=== PATIENT | female | born 1990 | race Caucasian/White ===

== ENCOUNTER 2020-04-28 14:17 | Emergency (ER) | payer OTHER ==
[~2020-04-28] VITALS: Ht 162.6 cm; Wt 93.1 kg
[2020-04-28 15:13] LABS: BASO # 0.1 10^3/uL (0.0-0.2); BASO % 0.8 % (0.0-1.0); EOS # 0.9 10^3/uL (0.0-0.5); EOS % 5.3 % (0.0-3.0); HEMATOCRIT 39.9 % (36.0-47.0); HEMOGLOBIN 12.9 g/dl (12.0-15.5); LYMPH # 2.8 10^3/uL (1.5-5.0); LYMPH % 16.4 % (24.0-44.0); MEAN CORPUSCULAR HEMOGLOBIN 28.6 pg (27.0-33.0); MEAN CORPUSCULAR HGB CONC 32.3 g/dl (32.0-36.5); MEAN CORPUSCULAR VOLUME 88.5 fl (80.0-96.0); MONO # 1.9 10^3/uL (0.0-0.8); MONO % 11.4 % (2.0-8.0); NEUTROPHILS # 11.1 10^3/uL (1.5-8.5); NEUTROPHILS % 65.6 % (36.0-66.0); PLATELET COUNT, AUTOMATED 488 10^3/uL (150-450); RED BLOOD COUNT 4.51 10^6/uL (4.00-5.40)
--- OUTSIDE RECORDS SUMMARY | 2020-04-28 15:25 | CCD | Continuity of Care Document ---
Author Author Yasimn WHELAN Organization Unknown Address [address] [place] [id number] Phone [phone] Care Team Providers Care Track Layer Name Role Phone Usa Milana Walsh sara AUTM Unavailable Problems Active Problems Provider Date Localized, primary osteoarthritis of the shoulder region Martín ETIENNE Manjarrez Onset: 08/28/2019 Disorder of bursa of shoulder region ETIENNE Dotson Ons et: 08/28/2019 Bicipital tenosynovitis ETIENNE Dotson Onset: 0 Social History Type Date Description Comments Sex Unknown ETOH Use Denies alcohol use Recreational Drug Use Denies Drug Use Tobacco Use Start: Unknown Patient is a current smoker, smo kes every day 2-3 per day, smoked for 10+ years Allergies, Adverse Reactions, Alerts Active Allergies Reaction Severity Comments Date NKDA 08/26/2019 NKFA 08/26/2019 NKEA 08/26/2019 Medications Description No Active Medications Immunizations Description No Information Available Vital Signs Date Vital Result Comment 01/29/2020 9:59am Body Temperature 98.4 F 08/31/2019 2:49pm BP Systolic 118 mmHg BP Diastolic 74 mmHg Heart Rate 95 /min Body Temperature 98.2 F O2 % BldC Oximetry 100 % Weight 170.00 lb Weight 77.112 kg Height 64 inches 5'4" BMI (Body Mass Index) 29.2 kg/m2 BSA (Body Surface Area) 1.83 m2 Results Test Acquired Date Facility Test Result H/L Range Note HCG Urine Qual 09/24/2019 [facility] HCG Urine Qual NEGATIVE Normal: Negative 1 HCG Urine QL [facility] NEGATIVE Normal: Negative 2 1 Will send patient on arrival 2 { KIT LOT # [id number] ) { KIT EXP DATE 12/21/20 ) { PROCEDURAL CONTROL VALID ) Procedures Description No Information Available Medical Devices Description No Information Available Encounters Type Date Location Provider Dx Diagnosis Office Visit 01/29/2020 10:00a [facility] Harmeet Whelan, F [employer] M75.21 Bicipital tendinitis, right shoulder M19.011 Primary osteoarthritis, righ t shoulder M75.51 Bursitis of right shoulder Assessments Date Code Description Provider 01/29/2020 M75.21 Bicipital tendinitis, right nadia Whelan, [facility] 01/29/2020 M19.011 Primary osteoarthritis, right lina Whelan, [employer] 01/29/2020 M75.51 Bursitis of right shoulder Hamreet Whelan, GROUND WORK[employer] 12/18/2019 M19.011 Primary osteoarthritis, right helenabenitez Xin Koehler M.D. 12/18/2019 M75.21 Bicipital tendinitis, right nadia marquis Xin Koehler M.D. 12/18/2019 M75.51 Bursitis of right shoulder Xin Koehler M.D. 11/06/2019 M19.011 Primary osteoarthritis, right lina Whelan, [facility] 11/06/2019 M75.21 Bicipital tendinitis, right nadia Whelan, [facility] 11/06/2019 M75.51 Bursitis of right shoulder Harmeet Whelan, [facility] 10/09/2019 M19.011 Primary osteoarthritis, right lina Koehler M.D. 10/09/2019 M75.21 Bicipital tendinitis, right emilylilly benitez Koehler M.D. 10/09/2019 M75.51 Bursitis of right shoulder Xin Koehler M.D. 09/30/2019 M19.011 Primary osteoarthritis, right lina Whelan, [facility] 09/30/2019 M75.21 Bicipital tendinitis, right nadia Whelan, [facility] 09/30/2019 M75.51 Bursitis of right shoulder Harmeet Whelan, [facility] 08/31/2019 M75.101 Unspecified rotator cuff tear or rupture of right shoulder, not specified as traumatic Xin Koehler M.D. 08/31/2019 M19.011 Primary osteoarthritis, right oubenitez Koehler M.D. 08/31/2019 M75.21 Bicipital tendinitis, right shou niurkaer Xin Koehler M.D. 08/31/2019 M75.51 Bursitis of right shoulder Xin Koehler M.D. 08/28/2019 M75.21 Bicipital tendinitis, right shou lder Harmeet Whelan, [facility] 08/28/2019 M75.51 Bursitis of right shoulder Harmeet Whelan, [facility] 08/28/2019 M75.101 Unspecified rotator cuff tear or rupture of right shoulder, not specified as traumatic Harmeet Whelan, [employer] 08/28/2019 M19.011 Primary osteoarthritis, right sh oulder Harmeet Cleopatra, [facility] 08/28/2019 Y92.530 Ambulatory surgery c enter as the place of occurrence of the external cause ETIENNE Dotson Plan of Treatment Future Appointment(s):* 05/02/2020 2:00 pm - Ortho Group Schedule Resource Only at [facility] 01/29/2020 - ETIENNE Dotson* M75.21 Bicipital tendinitis, right shoulder* Follow up:* 3 months * Instructions:* Today, your physical therapy order was updated to include strengthening. Take this to your next therapy appointment. It is very important that you strengthen gradually. Avoid lifting anything heavier outside of physical therapy than what you are currently lifting in therapy (if you have been lifting 10lbs in therapy do not lift 50lbs outside of therapy). Your next appointment will be in 3 months. Contact us sooner if you have any questions or concerns. * M19.011 Primary osteoarthritis, right shoulder * M75.51 Bursitis of right shoulder Functional Status Functional Condition Comment Date Status Glasses Active Contacts Active Mental Status Description No Information Available Referrals Description No Information Available
--- OUTSIDE RECORDS SUMMARY | 2020-04-28 15:25 | CCD ---
Author Author [facility] Organization [facility] Address Unknown Phone Unavailable Care Team Providers Care Computer Programming Supervisor Name Role Phone Cleopatra, D Harmeet COMBINE OPERATOR Unavailable Unavailable Cleopatra, D Harmeet COMBINE OPERATOR Unavailable Unavailable Cleopatra, D Harmeet COMBINE OPERATOR Unavailable Unavailable Cleopatra, D Harmeet COMBINE OPERATOR Unavailable Unavailable Cleopatra, D Harmeet COMBINE OPERATOR Unavailable Unavailable Cleopatra, D Harmeet COMBINE OPERATOR Unavailable Unavailable Cleopatra, D Harmeet COMBINE OPERATOR Unavailable Unavailable Cleopatra, D Harmeet COMBINE OPERATOR Unavailable Unavailable Cleopatra, D Harmeet COMBINE OPERATOR Unavailable Unavailable Cleopatra, D Harmeet COMBINE OPERATOR Unavailable Unavailable Cleopatra, D Harmeet COMBINE OPERATOR Unavailable Unavailable Cleopatra, D Harmeet COMBINE OPERATOR Unavailable Unavailable Cleopatra, D Harmeet COMBINE OPERATOR Unavailable Unavailable Cleopatra, D Harmeet COMBINE OPERATOR Unavailable Unavailable Cleopatra, D Harmeet COMBINE OPERATOR Unavailable Unavailable Cleopatra, D Harmeet COMBINE OPERATOR Unavailable Unavailable Cleopatra, D Harmeet COMBINE OPERATOR Unavailable Unavailable Cleopatra, D Harmeet COMBINE OPERATOR Unavailable Unavailable Cleopatra, D Harmeet COMBINE OPERATOR Unavailable Unavailable Cleopatra, D Harmeet COMBINE OPERATOR Unavailable Unavailable Cleopatra, D Harmeet COMBINE OPERATOR Unavailable Unavailable Cleopatra, D Harmeet COMBINE OPERATOR Unavailable Unavailable Cleopatra, D Harmeet COMBINE OPERATOR Unavailable Unavailable Cleopatra, D Harmeet COMBINE OPERATOR Unavailable Unavailable Cleopatra, D Harmeet COMBINE OPERATOR Unavailable Unavailable Cleopatra, D Harmeet COMBINE OPERATOR Unavailable Unavailable Cleopatra, D Harmeet COMBINE OPERATOR Unavailable Unavailable Cleopatra, D Harmeet COMBINE OPERATOR Unavailable Unavailable Cleopatra, D Harmeet COMBINE OPERATOR Unavailable Unavailable Cleopatra, D Harmeet COMBINE OPERATOR Unavailable Unavailable Cleopatra, D Harmeet COMBINE OPERATOR Unavailable Unavailable Cleopatra, D Harmeet COMBINE OPERATOR Unavailable Unavailable Cleopatra, D Harmeet COMBINE OPERATOR Unavailable Unavailable Cleopatra, D Harmeet COMBINE OPERATOR Unavailable Unavailable Cleopatra, D Harmeet COMBINE OPERATOR Unavailable Unavailable Cleopatra, D Harmeet COMBINE OPERATOR Unavailable Unavailable Cleopatra, D Harmeet COMBINE OPERATOR Unavailable Unavailable Cleopatra, D Harmeet COMBINE OPERATOR Unavailable Unavailable Cleopatra, D Harmeet COMBINE OPERATOR Unavailable Unavailable Cleopatra, D Harmeet COMBINE OPERATOR Unavailable Unavailable Cleopatra, D Harmeet COMBINE OPERATOR Unavailable Unavailable Cleopatra, D Harmeet COMBINE OPERATOR Unavailable Unavailable Cleopatra, D Harmeet COMBINE OPERATOR Unavailable Unavailable Cleopatra, D Harmeet COMBINE OPERATOR Unavailable Unavailable Cleopatra, D Harmeet COMBINE OPERATOR Unavailable Unavailable Cleopatra, D Harmeet COMBINE OPERATOR Unavailable Unavailable Cleopatra, D Harmeet COMBINE OPERATOR Unavailable Unavailable Cleopatra, D Harmeet COMBINE OPERATOR Unavailable Unavailable Cleopatra, D Harmeet COMBINE OPERATOR Unavailable Unavailable Cleopatra, D Harmeet COMBINE OPERATOR Unavailable Unavailable Cleopatra, D Harmeet COMBINE OPERATOR Unavailable Unavailable Cleopatra, D Harmeet COMBINE OPERATOR Unavailable Unavailable Cleopatra, D Harmeet COMBINE OPERATOR Unavailable Unavailable Cleopatra, D Harmeet COMBINE OPERATOR Unavailable Unavailable Cloepatra, D Harmeet COMBINE OPERATOR Unavailable Unavailable Cleopatra, D Harmeet COMBINE OPERATOR Unavailable Unavailable Cleopatra, D Harmeet COMBINE OPERATOR Unavailable Unavailable Cleopatra, D Harmeet COMBINE OPERATOR Unavailable Unavailable Cleopatra, D Harmeet COMBINE OPERATOR Unavailable Unavailable Cleopatra, D Harmeet COMBINE OPERATOR Unavailable Unavailable Cleopatra, D Harmeet COMBINE OPERATOR Unavailable Unavailable Cleopatra, D Harmeet COMBINE OPERATOR Unavailable Unavailable Cleopatra, D Harmeet COMBINE OPERATOR Unavailable Unavailable Cleopatra, D Harmeet COMBINE OPERATOR Unavailable Unavailable Cleopatra, D Harmeet COMBINE OPERATOR Unavailable Unavailable Cleopatra, D Harmeet COMBINE OPERATOR Unavailable Unavailable Cleopatra, D Harmeet COMBINE OPERATOR Unavailable Unavailable Cleopatra, D Harmeet COMBINE OPERATOR Unavailable Unavailable Cleopatra, D Harmeet COMBINE OPERATOR Unavailable Unavailable Cleopatra, D Harmeet COMBINE OPERATOR Unavailable Unavailable NON, PHYSICIAN STAFF Unavailable Unavailable PARNES Z XIN MD Unavailable Unavailable PARNES, Z XIN MD Unavailable Unavailable PARNES, Z XIN MD Unavailable Unavailable PARNES, Z XIN MD Unavailable Unavailable PARNES Z XIN MD Unavailable Unavailable PARNES, Z XIN MD Unavailable Unavailable PARNES Z XIN MD Unavailable Unavailable PARNES, Z XIN MD Unavailable Unavailable PARNES, Z XIN MD Unavailable Unavailable PARNES, Z XIN MD Unavailable Unavailable PARNES, Z XIN MD Unavailable Unavailable PARNES, Z XIN MD Unavailable Unavailable PARNES, Z XIN MD Unavailable Unavailable PARNES, Z XIN MD Unavailable Unavailable PARNES, Z XIN MD Unavailable Unavailable PARNES, Z XIN MD Unavailable Unavailable PARNES, Z XIN MD Unavailable Unavailable PARNES, Z XIN MD Unavailable Unavailable PARNES, Z XIN MD Unavailable Unavailable PARNES, Z XIN MD Unavailable Unavailable PARNES, Z XIN MD Unavailable Unavailable PARNES, Z XIN MD Unavailable Unavailable PARNES, Z XIN MD Unavailable Unavailable PARNES, Z XIN MD Unavailable Unavailable PARNES, Z XIN MD Unavailable Unavailable PARNES, Z XIN MD Unavailable Unavailable PARNES, Z XIN MD Unavailable Unavailable PARNES, Z XIN MD Unavailable Unavailable PARNES, Z XIN MD Unavailable Unavailable PARNES, Z XIN MD Unavailable Unavailable PARNES, Z XIN MD Unavailable Unavailable PARNES, Z XIN MD Unavailable Unavailable PARNES, Z XIN MD Unavailable Unavailable PARNES, Z IXN MD Unavailable Unavailable PARNES, Z XIN MD Unavailable Unavailable PARNES, Z XIN MD Unavailable Unavailable PARNES, Z XIN MD Unavailable Unavailable PARNES, Z XIN MD Unavailable Unavailable Re-disclosure Warning The records that you are about to access may contain information from federally-assisted alcohol or drug abuse programs. If such information is present, then the following federally mandated warning applies: This information has been disclosed to you from records protected by federal confidentiality rules (42 CFR part 2). The federal rules prohibit you from making any further disclosure of this information unless further disclosure is expressly permitted by the written consent of the person to whom it pertains or as otherwise permitted by 42 CFR part 2. A general authorization for the release of medical or other information is NOT sufficient for this purpose. The Federal rules restrict any use of the information to criminally investigate or prosecute any alcohol or drug abuse patient.The records that you are about to access may contain highly sensitive health information, the redisclosure of which is protected by Article 27-F of the [facility] Public Health law. If you continue you may have access to information: Regarding HIV / AIDS; Provided by facilities licensed or operated by the [facility] Office of Mental Health; or Provided by the [facility] Office for People With Developmental Disabilities. If such information is present, then the following [facility] mandated warning applies: This information has been disclosed to you from confidential records which are protected by state law. State law prohibits you from making any further disclosure of this information without the specific written consent of the person to whom it pertains, or as otherwise permitted by law. Any unauthorized further disclosure in violation of state law may result in a fine or halfway sentence or both. A general authorization for the release of medical or other information is NOT sufficient authorization for further disc losure. Allergies and Adverse Reactions Type Description Substance Reaction Status Data Source(s ) No Known Drug Allergies No Known Drug Allergies [facility] No Known Environmental Allergies No Known Environmental Al lergies [facility] No Known Food Allergies No Known Food Allergies [facility] Encounters Encounter Providers Location Date Indications Data Source(s ) Outpatient Attender: XIN KOEHLER MDConsultant: STAFF NON 01/29/2020 09:50:00 AM EST - 01/29/2020 09:50:00 AM EST [facility] ital Outpatient Attender: Harmeet Whelan NP Family Practice 01/29/2020 0 9:00:00 AM EST [facility] ([facility]) Outpatient Attender: XIN KOEHLER MDConsultant: STAFF NON 12/22/2019 11:01:00 AM EDT - 01/07/2020 12:16:00 PM EDT [facility] Patient discharged. Office Visit Attender: XIN KOEHLER MD Family Practice 020 10:00:00 AM EDT [facility]) Outpatient Attender: XIN KOEHLER MD 020 09:00:00 AM EDT - 12/18/2019 09:00:[address] [facility] Outpatient Attender: Harmeet Whelan NPAttender: XIN Potts 11/06/2019 07:53:00 AM EDT - 11/06/2019 07:53:[address] [facility] Outpatient Attender: XIN KOEHLER MD 020 10:31:00 AM EDT - 10/09/2019 10:31:[address] [facility] Outpatient Attender: XIN KOEHLER MD 020 08:26:00 AM EDT - 09/30/2019 08:26:[address] [facility] Outpatient Attender: XIN KOEHLER MD 020 07:00:00 AM EDT - 09/24/2019 11:57:[address] [facility] Patient discharged. Outpatient Attender: XIN KOEHLER MD 020 12:40:16 PM EDT - 09/04/2019 10:30:[address] [facility] Patient discharged. Outpatient Attender: Harmeet Whelan NP 2019 11:10:00 AM EDT - 09/01/2019 12:10:[address] [facility] Outpatient Attender: XIN KOEHLER MD Family Practice 08/31/2019 03 :00:00 PM EDT [facility] ([facility]) Outpatient Attender: XIN KOEHLER MD 020 02:46:00 PM EDT - 08/31/2019 02:46:[address] [facility] Outpatient Attender: Harmeet Whelan NPAttender: XIN Potts 08/28/2019 11:04:00 AM EDT - 08/28/2019 11:04:[address] [facility] Outpatient Attender: Harmeet Whelan COMBINE OPERATOR Family Practice 08/28/2019 1 1:00:00 AM EDT [facility] ([facility]) Medications Medication Brand Name Start Date Product Form Dose Route Admi nistrative Instructions Pharmacy Instructions Status Indications Reaction Description Data Source(s) 5-325 mg 09/24/2019 12:00:00 AM EDT tablet 48 TAKE ONE TO TWO TABLETS BY MOUTH EVERY 4 TO 6 HOURS NEEDED FOR PAIN MAXIMUM DAILY DOSE = 8 TAKE ONE TO TWO TABLETS BY MOUTH EVERY 4 TO 6 HOURS NEEDED FOR PAIN MAXIMUM DAILY DOSE = 8 SOLD: 09/24/2019 Benjamin [place] s Insurance Providers Payer name Policy type / Coverage type Policy ID Covered libertarian ID Covered libertarian's relationship to bhardwaj Policy Bhardwaj Plan Information [employer] [id number] [employer] [place] [id number] [employer] [place] [id number] 01 [id number] [employer] PHYSICIAN [id number] 01 [id number] [employer] [place] [id number] 01 [id number] [employer] [place] [id number] [employer] [place] [id number] [employer] [place] [id number] Problems, Conditions, and Diagnoses Code Display Name Description Problem Type Effective Dates Data Source(s) 50569265 Bicipital tenosynovitis Bicipital tenosynovitis Proble m 08/28/2019 12:00:00 AM EDT [facility] ([facility]) [id number] Disorder of bursa of shoulder region Dis order of bursa of shoulder region Problem 08/28/2019 12:00:00 AM EDT [facility] ([facility]) [id number] Localized, primary osteoarthritis of the shoulder region Localized, primary osteoarthritis of the shoulder region Problem 08/28/19 20 12:00:00 AM EDT [facility] ([facility]) [id number] Encounter for other orthopedic aftercare Encounter for other orthopedic aftercare Diagnosis 12/22/2019 11:01:[address] [facility] Z4802 Encounter for removal of sutures Encounter for r emoval of sutures Diagnosis 10/09/2019 10:31:[address] [facility] M7551 Bursitis of right shoulder Bursitis of right shoulder Diagnosis 09/24/2019 07:00:[address] [facility] M7521 Bicipital tendinitis, right shoulder Bicipital t endinitis, right shoulder Diagnosis 09/24/2019 07:00:[address] [facility] [id number] Primary osteoarthritis, right shoulder P rimary osteoarthritis, right shoulder Diagnosis 09/24/2019 07:00:[address] [facility] [id number] Unspecified rotator cuff tea r or rupture of right shoulder, not specified as traumatic Unspecified rotator cuff tear or rupture of right shoulder, not specified as traumatic Diagnosis 09/24/2019 07:00:00 AM EDT [facility] J60174 Encounter for other preprocedural examin ation Encounter for other preprocedural examination Diagnosis 09/04/2019 09:30:00 AM EDT [facility] Results ID Date Data Source [id number] 09/24/2019 01:11:[place] [address] OPERATIVE SUMMARYNAME: CHERI NERI DATE OF : 1990ATTENDING PHYS: Xin Koehler MD DATE : 09/24/19 MR#: [id number] OF PROCEDURE: 09/24/2019PREOPERATIVE DIAGNOSIS: 1. Right shoulder long biceps tendon tendinosis. 2. Right shoulder subacromial bursitis. 3. Right shoulder acromioclavicular joint arthritis. 4. Right shoulder possible rotator cuff tear.POSTOPERATIVE DIAGNOSIS: 1. Right shoulder long biceps tendon tendinosis. 2. Right shoulder subacromial bursitis and down-sloping acromion. 3. Right shoulder acromioclavicular joint arthritis. 4. Right shoulder normal rotator cuff tendons.SURGEON: Xin Koehler MD.MATERIALS BRANCH CHIEF: Harmeet Whelan NP.REASON FOR ASSISTANT PROGRAM DIRECTOR: Harmeet Whelan NP provided essential assistance during this caseincluding careful retraction of vital structures, safe manipulation of anatomic structures,stabilization of scope, suctioning of body fluid to maintain clear visualization, wound closure, andimmobilizer placement.ANESTHESIA: General, interscalene block, local.ANESTHESIOLOGIST: Herbie Hardwick MD.SURGICAL TIME: 69 minutes.OPERATION PERFORMED: 1. Right shoulder evaluation under anesthesia. 2. Right shoulder diagnostic arthroscopy. 3. Right shoulder arthroscopic subacromial decompression plus acromioplasty. 4. Right shoulder arthroscopic acromioclavicular joint resection arthroplasty. 5. Right shoulder arthroscopic assisted subpectoral biceps tenodesis ([employer]hew OsteoRaptor 2.9 mm double-loaded anchor x1).ESTIMATED BLOOD LOSS: Minimal.SPECIMENS: None. [address] [place] [address] OPERATIVE SUMMARYNAME: CHERI NERI DATE OF : 1990ATTENDING PHYS: Xin Koehler MD DATE: 09/24/19 MR#: [id number]: [employer]hew OsteoRaptor 2.9 mm double-loaded anchor x1.SPONGE COUNT: Correct.NEEDLE COUNT: Correct.COMPLICATIONS: None.INDICATION FOR PROCEDURE:The patient is a 28-year-old female with pain in her right dominant shoulder for the last ten years.The patient's preoperative examination and imaging studies, including MRI, suggested the abovenoted diagnosis. The patient failed conservative treatment, therefore it was elected at this point toperform the above-noted surgery.OPERATIVE FINDINGS:Examination under anesthesia demonstrated stable, supple shoulder. Range of motion wasmeasured with forward flexion 160 degrees, external rotation 70 degrees, internal rotation 60degrees. At time of arthroscopy, the cartilage of the humeral head and glenoid were found to benormal. The labrum was normal and well attached all around the glenoid. The capsule appeared alfie normal. The biceps tendon was inflamed including its intrabicipital groove part. The rotator cufftendons were completely normal. In the subacromial space there was a thick bursitis and down-sloping acromion. There was a diminished joint space and arthritis of the acromioclavicular joint.DESCRIPTION OF PROCEDURE:The patient was brought to the operating room and placed on the operating table in beach chair andsupine position. After adequate anesthesia was obtained, the patient was placed in the uprightseated position. The right arm was then elevated, prepped, and draped in the usual sterile fashion.The patient received 2 gram of Ancef IV preoperatively as prophylaxis against infection.Arthroscopy was then performed through the standard portals with findings as noted above.ARTHROSCOPIC BICEPS TENOTOMY:Visualizing directly the glenohumeral joint, the biceps tendon was tenotomized with shaver andradiofrequency device. The radiofrequency device was used to debride the stump of the tendontissue. After the tenotomy, it was verified that the biceps tendon was retracted all the way into thebicipital groove.ARTHROSCOPIC SUBACROMIAL DECOMPRESSION PLUS ACROMIOPLASTY: [address] [place] [address] OPERATIVE SUMMARYNAME: CHERI NERI DATE OF : 1990ATTENDING PHYS: Xin Koehler MD DATE: 09/24/19 MR#: [id number] the two portal technique with motorized shaver and radiofrequency device, the bursa wasremoved from lateral to medial and from anterior to posterior. Then using a motorized bur in thesame sequence of steps, I flattened the acromion. The coracoacromial ligament was left intact. Therotator cuff tendons were inspected from the bursal side and found to be completely normal.ARTHROSCOPIC ACROMIOCLAVICULAR JOINT RESECTION ARTHROPLASTY:Using the two portal technique with motorized shaver and radiofrequency device, the distal claviclewas resected. I used the anterior portal to facilitate this and visualized through the posterior andlateral portals while removing the distal clavicle in a uniform from superior to inferior and anteriorto posterior for a distance of 1 cm.ARTHROSCOPIC ASSISTED SUBPECTORAL BICEPS TENODESIS:The arthroscopic instrument was removed from the shoulder. The arm was 40 degree abducted and30 degree forward flexed. Approximately 4 cm incision was made in the anterior inferior axillaryfold. Sharp dissection was deplored through the subcutaneous tissue down through the fasciaoverlying the pectoralis major tendon. The subpectoral space was then bluntly dissected. The armwas then internally rotated and a retractor was placed to elevate the pectoralis major tendon. Thebiceps tendon was delivered with right angle clamp in retrograde fashion out of the bicipitalgroove. The adjacent bone was opened, and a single anchor OsteoRaptor 2.9 mm double-loadedwas placed in the bone at this point. The sutures were then retrieved at the musculocutaneousjunction of the biceps in alternating simple and lasso-loop configuration. The suture was tied downlocking the tendon against the abraded bone. The extra length of the tendon and the suture wereremoved with a knife. I irrigated the wound thoroughly.The incision was closed with 3-0 Vicryl suture. The skin was closed with continuous 3-0 Monocrylsuture, reinforced with Steri- Strips. The portals were closed with interrupted 3-0 nylon suture. Theshoulder was dressed sterilely and positioned in shoulder immobilizer and Cryo-Cuff device. Thepatient was transferred to the recovery room in satisfactory condition, having tolerated theprocedure very well.POSTOPERATIVE THERAPY PROTOCOL:The patient shoulder use the Cryo-Cuff device for pain control. The patient will remain in shoulderimmobilizer for six weeks. After two weeks, pass nupur range of motion will be started. After sixweeks, active and active-assisted range of motion will be started. On the first clinical follow up, Nuno teach the patient how to do elbow, wrist, and finger range of motion. This is Dr. Xin Koehler, Ipersonally performed all elements of this surgery. [address] [place] [address] OPERATIVE SUMMARYNAME: CHERI NERI DATE OF : 1990ATTENDING PHYS: Xin Koehler MD DATE: 09/24/19 MR#: [id number]: Xin Koehler MD 09/24/19 11:40DT: SSR 09/24/19 12:59DS: Xin Koehler MD 09/25/19 15:27 4 Name Value Range Interpretation Code Description Data Nia rce(s) Supporting Document(s) ID Date Data Source [id number] 09/24/2019 07:45:00 AM EDT [facility] ([facility]) Name Value Range Interpretation Code Description Data Nia rce(s) Supporting Document(s) HCG Urine Qual Laboratory test result [facility] ([facility]) Will send patient on arrival HCG Urine QL [facility]enter Laboratory test result [facility] ([facility]) Will send patient on arrival ID Date Data Source [id number] 09/24/2019 08:04:[address] [facility] Name Value Range Interpretation Code Description Data Nia rce(s) Supporting Document(s) HCG URINE QUAL NEGATIVE NORMAL: NEGATIVE [facility] HCG URINE QL REENTER NEGATIVE NORMAL: NEGATIVE [facility] { KIT LOT # [id number] ){ KIT EXP DATE 12/21/20 ){ PROCEDURAL CONTROL VALID ) ID Date Data Source [id number] 09/01/2019 08:47:00 PM EDT [facility] [address] [place] [address] RESPIRATORY CARE REPORT ==== ---------NAME------- NUMBER SEX AGE ADMIT DISC. XRAY# F/C [facility] [id number] F 28 09/01/19 09/01/19134563 SB4 O/P DATE OF : 1990 M/R# [id number] #: [id number] LOCATION: [facility] [address] COMPLETE:09/01/19 12:08 [address] PHYSICIAN: CORI Name Value Range Interpretation Code Description Data Nia rce(s) Supporting Document(s) ID Date Data Source [id number] 09/01/2019 12:01:[address] [facility] Name Value Range Interpretation Code Description Data Nia rce(s) Supporting Document(s) COMPREHENSIVE METABOLIC PANEL [facility] COMPREHENSIVE METABOLIC PANEL Sodium [Moles/volume] in Serum or Plasma 137 mEq/L 134 - 153 [facility] Potassium [Moles/volume] in Serum or Plasma 4.3 mEq/L 3.6 - 5.0 [facility] Chloride [Moles/volume] in Serum or Plasma 107 mEq/L 98 - 107 [facility] Carbon dioxide, total [Moles/volume] in Serum or Plasma 20 MEQ/L 22 - [address] [facility] Glucose [Mass/volume] in Serum or Plasma 141 MG/DL 65 - [address] [facility] BUN 9 MG/DL 7 - 21 [facility] al Creatinine [Mass/volume] in Serum or Plasma 0.7 MG/DL 0.7 - 1.5 [facility] BUN/CREAT 13 8 - 27 [facility] Protein [Mass/volume] in Serum or Plasma 7.0 G/DL 6.3 - 8.2 [facility] Albumin [Mass/volume] in Serum or Plasma 4.5 G/DL 3.9 - 5.0 [facility] Globulin [Mass/volume] in Serum by calculation 2.5 GM/DL 2.4 - 3.2 [facility] A/G RATIO 1.8 0.8 - 2.0 [facility] Calcium [Mass/volume] in Serum or Plasma 9.4 MG/DL 8.4 - 10.2 [facility] Bilirubin.total [Mass/volume] in Serum or Plasma <0.7 MG/DL 0.2 - 1.3 [facility] Alkaline phosphatase [Enzymatic activity/volume] in Serum or Plasma 86 U/L 38 - 126 [facility] Aspartate aminotransferase [Enzymatic activity/volume] in Serum or Plasma 18 U/L 5 - 40 [facility] Alanine aminotransferase [Enzymatic activity/volume] in Seru m or Plasma 20 U/L 7 - 56 [facility] Anion gap 3 in Serum or Plasma 10.0 mmol/L 8.0 - 16.0 [facility] AGE 28 yrs [facility] al NON-AA GFR >60 mL/min [facility] ital AFR AMER GFR >60 mL/min [facility] Male GFR In terprentation 20-49 yrs >60 mL/min Normal 50-59 yrs >56 mL/min Normal 60-69 yrs >49 mL/min Normal 70-79yrs >42 mL/min Normal 80 and above >35 mL/min Normal Female GFR Interpretation 20-39 yrs >60 mL/min Normal 40-49 yrs >58 mL/min Normal 50-59 yrs >51 mL/min Normal 60-69 yrs >45 mL/min Normal 70-79 yrs >39 mL/min Normal 80 and above >32 mL/min Normal ID Date Data Source [id number] 09/01/2019 11:48:[address] [facility] Name Value Range Interpretation Code Description Data Nia rce(s) Supporting Document(s) [facility] SOURCE R [facility] al COLOR yellow NORMAL: Yellow [facility] CLARITY clear NORMAL: Clear [facility] Specific gravity of Urine by Test strip 1.010 1.001 - 1.030 [facility] pH 6 5 - 9 [facility] al Glucose [Mass/volume] in Urine by Test strip NORM NORMAL: Negat [facility] Bilirubin.total [Presence] in Urine by Test strip NEG NORMAL: Negative [facility] Ketones [Presence] in Urine by Test strip NEG NORMAL: Negative [facility] Protein [Mass/volume] in Urine by Test strip [facility]G [facility] Nitrite [Presence] in Urine by Test strip NEG NORMAL: Negative [facility] BLOOD 25 NORMAL: Negative A [facility] Leukocyte esterase [Presence] in Urine by Test strip NEG KATARINA L: Negative [facility] Urobilinogen [Mass/volume] in Urine by Test strip NOR less stan n 1.0 mg/dL [facility] MICROSCOPIC See Below [facility] ital Erythrocytes [#/volume] in Urine by Test strip 0 - 1 NORMAL: NON E SEEN [facility] EPITHELIAL FEW NORMAL: NONE SEEN [facility] ID Date Data Source [id number] 09/01/2019 11:29:[address] [facility] Name Value Range Interpretation Code Description Data Nia rce(s) Supporting Document(s) CBC NO DIFF [facility] ital COMPLETE BLOOD COUNT Leukocytes [#/volume] in Blood by Automated count 8.4 10^3/uL 4.2 - [address] [facility] Erythrocytes [#/volume] in Blood by Automated count 4.88 10^6/uL 4. 20 - 5.40 [facility] Hemoglobin [Mass/volume] in Blood 14.3 g/dL 12.0 - 16.0 [facility] Hematocrit [Volume Fraction] of Blood by Automated count 42.5 % 3 7.0 - 47.0 [facility] Erythrocyte mean corpuscular volume [Entitic volume] by Auto mated count 87.1 fL 81.0 - 101 [facility] Erythrocyte mean corpuscular hemoglobin [Entitic mass] by Automated count 29.3 pg 27.0 - 34.0 [facility] Erythrocyte mean corpuscular hemoglobin concentration [Mass/volume] by Automated count 33.6 g/dL 31.0 - 36.0 [facility] Erythrocyte distribution width [Ratio] by Automated count 12.9 % 11.5 - 14.5 [facility] Platelets [#/volume] in Blood by Automated count 382 10^3/uL 150 - [address] [facility] Platelet mean volume [Entitic volume] in Blood by Automated count 9.6 fL 7.4 - 10.4 [facility] ID Date Data Source [id number] 05/28/2019 10:49:00 AM EDT [facility] Name Value Range Interpretation Code Description Data Nia rce(s) Supporting Document(s) SARS CORONAVIRUS 2 RNA [facility] This lab was ordered by [facility] Laboratory and reported by [facility]. Procedure Vital Signs ID Date Data Source [id number] Name Value Range Interpretation Code Description Data Source(s) Body temperature 98.4 [degF] 98.4 [degF] [facility] ([facility]) Body surface area Derived from formula 1.83 m2 1.83 m2 [facility] ([facility]) Body mass index (BMI) [Ratio] 29.2 kg/m2 29.2 k g/m2 [facility] ([facility]) Body height 64 [in_i] 64 [in_i] [facility] ([facility]) 5'4" Body weight 77.112 kg 77.112 kg [facility] ([facility]) Body weight 170.00 [lb_av] 170.00 [lb_av] [facility] ([facility]) Oxygen saturation in Arterial blood by Pulse oximetry 100 % 100 % [facility] ([facility]) Body temperature 98.2 [degF] 98.2 [degF] [facility] ([facility]) Heart rate 95 /min 95 /min [facility] ([facility]) Diastolic blood pressure 74 mm[Hg] 74 mm[Hg] [facility] ([facility]) Systolic blood pressure 118 mm[Hg] 118 mm[Hg] M [facility] ([facility]) Body surface area 1.83 m2 1.83 m2 [facility] ([facility]) ID Date Data Source [id number] 11/06/2019 07:56:[address] [facility] Name Value Range Interpretation Code Description Data Source(s) WEIGHT RECORDED 170.00 pounds 170.00 pounds [facility] Height [address] [facility]
[2020-04-28 15:34] LABS: ALBUMIN 3.1 GM/DL (3.2-5.2); BILIRUBIN,DIRECT 0.1 MG/DL (0.0-0.2); BILIRUBIN,TOTAL 0.2 MG/DL (0.2-1.0); CALCIUM LEVEL 9.7 MG/DL (8.5-10.1); CREATININE FOR GFR 1.17 MG/DL (0.55-1.30); GLOMERULAR FILTRATION RATE 58.2 (>60); POTASSIUM SERUM 4.3 MEQ/L (3.5-5.1); TOTAL PROTEIN 6.6 GM/DL (6.4-8.2)
[2020-04-28] MEDS ORDERED: GI COCKTAIL 50ML BTL(HYOSCYAMINE/MAALOX/LIDOCAINE VISCOUS)(1:3:1) PO ONE (15:45)
[2020-04-28] MEDS ORDERED: PANTOPRAZOLE 40MG VIAL (C9113 PER 1) IV ONE (15:45)
[2020-04-28] MEDS ORDERED: ISOVUE-370 76% 100ML VIAL As Ordered ONE (15:47)
--- NOTE | 2020-04-28 16:13 | REP ---
INDICATION: epigastric pain/vomiting. COMPARISON: None. TECHNIQUE: Helical scanning was acquired and 4 mm axial images are re-formatted. Coronal and sagittal MPR images were generated and reviewed. The contrast enhancement dose is 100 mL of intravenous Isovue 370. FINDINGS: Preliminary digital lead qa analyst radiographs show a normal bowel gas pattern. The lung bases are clear on axial CT images. The liver and the spleen are normal in size homogeneous in texture. There is a small sliding-type hiatal hernia. Normal adrenal glands are observed. No abnormality is noted in the pancreas. The gallbladder is somewhat contracted in appearance but unremarkable. Kidneys enhance symmetrically and appear morphologically intact. No retroperitoneal mass or adenopathy is observed. Uterus and ovaries are normal in appearance. Urinary bladder is intact. There is mild left colonic diverticulosis without CT evidence of diverticulitis. There are 1 or 2 right colonic diverticula. A normal appendix is seen terminating in the central pelvis just to the right of midline. No bony destructive lesion is seen. No abdominal wall defect is seen. There is a pattern of submucosal fat in the wall of the distal ileum and in the wall of the right and transverse segments of the colon. This is nonspecific but may reflect old inflammatory bowel disease change. There is no evidence of acute enterocolitis. IMPRESSION: Sliding-type hiatal hernia. Right and left colonic diverticulosis without CT evidence of diverticulitis. Submucosal fat distributed in the distal ileum and right and transverse colon segments may reflect old inflammatory bowel disease change. No acute gastrointestinal abnormality seen. <Electronically signed by Jeb Morillo > 04/28/20 [id number]
[2020-04-28] MEDS ORDERED: SUCR1TA PO (17:51)
[2020-04-28] MEDS ORDERED: OMEP40CA97 PO (17:51)
[2020-04-28] MEDS ORDERED: SUCRALFATE 1 GM TAB PO ONE (18:00)
[2020-04-28 18:56] VITALS: BP 144/92
--- NOTE | 2020-04-29 07:53 | ED PDOC ---
Post-Departure Follow-Up radiology report faxed to [facility] Eunice Leung MD Apr 29, 2020 07:53
== END 2020-04-28 18:59 | disposition home or self-care (01) ==
LOC: M ED 14:17
DX: K27.9 Peptic ulcer, site unspecified, unspecified as acute or chronic, without hemorrhage or perforation (principal); K92.0 Hematemesis; F17.290 Nicotine dependence, other tobacco product, uncomplicated
CPT/HCPCS: 74177; 80048; 80076; 83690; 84702; 85025; 96374; 99285; C9113; Q9967